=== PATIENT | female | born 1995 | race Caucasian/White ===

== ENCOUNTER 2016-09-23 20:12 | Emergency (ER) | payer OTHER ==
[~2016-09-23] VITALS: Ht 160 cm; Wt 57.2 kg
[2016-09-23 20:31] VITALS: TEMP 36.7; Ht 160 cm; Wt 57.2 kg
--- NOTE | 2016-09-23 21:14 | EMERGENCY ROOM VISIT NOTE ---
History Report prepared by Scribe: Eleanor Luu Under the Supervision of: Dr. Daniel De La Torre D.O. First contact with patient: 20:54 Chief Complaint: HIP PAIN Stated Complaint: R HIP FRACTURE History of Present Illness The patient is a 21 year old female who presents to the Emergency Room with complaints of worsening right hip pain for the past several weeks. She reports she has been training for a half marathon and has been running more than usual for her training. She initially started experiencing right leg pain, which then traveled into her hip. She rates her discomfort as a 6/10. Walking and activity worsens her pain. The patient initially saw [facility] and produced a normal X-Ray. She was then referred to Dr. Barnett at [facility]. She reports she was seen here earlier today and had an MRI, ordered by Dr. Barnett at [facility]. The MRI showed a right radial neck fracture, and the patient states Dr. Barnett referred her to the ED for further evaluation. The patient denies any recent falls or trauma and states she was told her fracture was most likely from overuse. She denies any other complaints at today's visit. Source of History: patient Onset: past several weeks TAKE AWAY MAN Position: other (right hip) Symptom Intensity: 6/10 Timing: worsening Modifying Factors (Worsening): movement, other (walking) Review of Systems See HPI for pertinent positives & negatives. A total of 10 systems reviewed and were otherwise negative. Family History Cancer Social History Smoking Status: Never Smoker Alcohol Use: occasionally Drug Use: none Marital Status: in relationship Housing Status: lives with significant other Occupation Status: [employer] student Allergies Coded Allergies: No Known Allergies (Unverified , 09/23/16) Physical Exam Vital Signs Date Time Temp Pulse Resp B/P Pulse Ox O2 Delivery O2 Flow Rate FiO2 09/23/16 20:31 36.7 85 16 140/93 98 Room Air Physical Exam CONSTITUTIONAL/VITAL SIGNS: Reviewed / noted above. GENERAL: Non-toxic in appearance. INTEGUMENTARY: Warm, dry, and [place]. HEAD: Normocephalic. EYES: without scleral icterus or trauma. ENT/OROPHARYNX: clear and moist. LYMPHADENOPATHY/NECK: Is supple without lymphadenopathy or meningismus. RESPIRATORY: Lungs clear and equal. CARDIOVASCULAR: Regular rate and rhythm. GI/ABDOMEN: Soft and nontender. No organomegaly or pulsatile mass. No rebound or guarding. Normal bowel sounds. EXTREMITIES: Warm and well perfused. BACK: No CVA tenderness. NEUROLOGICAL: Intact without focal deficits. PSYCHIATRIC: normal affect. MUSCULOSKELETAL: Normally developed with good muscle tone. Medical Decision & Procedures ED Course 2053: Previous medical records were reviewed. The patient was evaluated in room A2. A complete history and physical examination was performed. 2103: I discussed the patients case with Josias Najera and [facility]. He recommends the patient be placed on crutches and have outpatient follow up. 2114: I reevaluated the patient. She is feeling well. I discussed her discharge instructions and she verbalized complete understanding and agreement. Medical Decision Differential includes fracture, contusion, musculoskeletal pain. This is a 21-year-old female who presents to the ED with an outpatient MRI showing a nondisplaced/non-distracted fracture with some bone marrow edema in the right femoral neck. She states that she has recently been training to run for a marathon but was unable to continue with this several weeks ago when she developed a pain in her right hip. She was seen by [employer] orthopedic sports medicine. She had an outpatient MRI today that showed this fracture. I spoke with Dr. Burgos, on-call orthopedics, who recommended the patient be only touch weightbearing on crutches and follow-up with orthopedics outpatient. She was referred to [employer] [facility] since she is seeing them for sports medicine. Consults Time Called: 2099 Consulting Physician: Vlad [facility] Returned Call: 2103 I discussed the patients case with Josias Najera and [facility]. He recommends the patient be placed on crutches and have outpatient follow up. Impression Primary Impression: Stress fracture of femoral neck Scribe Attestation The scribe's documentation has been prepared under my direction and personally reviewed by me in its entirety. I confirm that the note above accurately reflects all work, treatment, procedures, and medical decision making performed by me. Departure Information Dispostion Home / Self-Care Referrals No Doctor, Assigned (PCP) Dillan Gifford M.D. Patient Instructions Fx Stress, My [facility] Additional Instructions Use crutches. Non-weight bearing to right leg. Follow-up with Dr. Gifford for further evaluation. Call tomorrow for an appointment for follow-up.
[2016-09-23 21:31] VITALS: BP 133/84; PULSE 79; O2SAT 98
[2016-09-23] MEDS ORDERED: BCPILLS PO (21:32)
[2016-09-23] MEDS ORDERED: NAPR-1168 PO (21:33)
== END 2016-09-23 21:33 | disposition home or self-care (01) ==
LOC: C.EDB 20:14 → C.EDA 21:33
DX: M84.359A Stress fracture, hip, unspecified, initial encounter for fracture (principal); Z80.9 Family history of malignant neoplasm, unspecified

== ENCOUNTER → 2016-09-23 | Outpatient (CLI) | payer OTHER ==
[~2016-09-23] MED LIST: BCPILLS PO; NAPR-1168 PO
--- NOTE | 2016-09-23 20:00 | DIAGNOSTIC IMAGING REPORT ---
MRI OF THE RIGHT HIP WITHOUT IV CONTRAST CLINICAL HISTORY: Overuse injury. COMPARISON STUDY: No priors. TECHNIQUE: MRI of the right hip is performed utilizing various T1 and T2-weighted sequences in the axial and coronal planes. IV contrast was not administered for this examination. FINDINGS: There is a nondistracted fracture through base of the right femoral neck with significant surrounding marrow edema. No additional acute fracture is seen. The left hip and the visualized bony pelvis appear intact. There is no joint effusion. There is no evidence of greater trochanteric or iliopsoas bursitis. The musculature of the hips and pelvis is normal in bulk and signal intensity. The origin of the hamstrings tendons appear preserved. The pelvic viscera is normal as imaged. Trace free fluid is identified in the cul-de-sac and likely within physiologic limits. There is no pelvic sidewall or inguinal lymphadenopathy. IMPRESSION: There is a nondistracted fracture through the base of the right femoral neck with significant associated marrow edema. Findings were discussed with the patient at the time of interpretation, with obstruction to return to the emergency department for further assessment and treatment. Electronically signed by: Artemio Springer M.D. 09/23/2016 7:57 PM Dictated Date/Time: 09/23/2016 7:34 PM
== END | disposition home or self-care (01) ==
LOC: C.MRI 17:50
PROVIDERS: ATTEND Family Medicine Sports Medicine
DX: M25.551 Pain in right hip (principal); S72.044A Nondisplaced fracture of base of neck of right femur, initial encounter for closed fracture; X58.XXXA Exposure to other specified factors, initial encounter

== ENCOUNTER → 2016-09-30 | Day surgery (SDC) | payer OTHER ==
[2016-09-27 12:44] VITALS: Ht 160 cm; Wt 54.5 kg
[~2016-09-30] VITALS: Ht 160 cm; Wt 54.5 kg
[~2016-09-30] MED LIST changes: +ATROPINE SULFATE 0.1 MG/ML 5ML SYR IV PRN; +BUPIVACAINE 0.5 % 5 MG/1 ML MPF 30ML VIAL ONE; +CEFAZOLIN 1000MG/55 ML D5W IV SCH; +DEXAMETHASONE SOD INJ 4 MG/ML VIAL ONE; +EpHEDrine SULFATE 50MG/5ML SYR ONE; +EpHEDrine SULFATE INJ 50 MG/ML AMP IV PRN; +FENTANYL CITRATE INJ 50 MCG/1 ML 2 ML VIAL ONE; +LACTATED RINGER'S 1000ML 1,000 ML IV SCH; +LIDOCAINE HCL 2% 2 ML VIAL (20MG/ML) ONE; +LIDOCAINE/EPINEPHRINE 1% INJ 50 ML VIAL ONE; +MIDAZOLAM HCL 1 MG/ML 2ML VIAL ONE; +MoRPHine SULFATE 2 MG/ML CARP IV PRN; +MoRPHine SULFATE 4 MG/ML 1 ML CARP\\VIAL IV PRN; +NALOXONE HCL 0.4 MG/1 ML VIAL/CARP IV PRN; -NAPR-1168 PO; +ONDANSETRON INJ 2 MG/ML 2 ML VIAL IV PRN; +ONDANSETRON INJ 2 MG/ML 2 ML VIAL ONE; +PROMETHAZINE HCL INJ 12.5 MG in SODIUM CHLORIDE 0.9% 50ML 50 ML IV PRN; +PROPOFOL IV EMULSION 10 MG/ML 20 ML VIAL IV ONE
--- NOTE | 2016-09-30 08:46 | History & Physical Bridge - SC ---
H&P Re-Evaluation Bridge Note: I have examined the patient, reviewed the History & Physical and in the interval since the performance of the History & Physical I have noted the following changes of clinical significance: No changes noted
--- NOTE | 2016-09-30 11:32 | Discharge Instructions-SurgCtr ---
Discharge Instructions Date of Service September 30, 2016. Visit Reason for Visit: Right Hip Stress Fracture Discharge Discharge Diagnosis / Problem: Status post Closed Right hip In Situ Pinning Discharge Goals Goal(s): Decrease discomfort, Improve function, Increase independence Activity Recommendations Activity Limitations: per Instructions/Follow-up section May Resume Sexual Activity: when tolerated Shower/Bathe: may shower/bathe in 3 days Driving or Machine Use: Not while on Narcotics Weightbearing Status: Right toe touch Anesthesia . Post Anesthesia Instructions: If you have had General Anesthesia or IV Sedation: * Do not drive today. * Resume driving when surgeon permits. * Do not make important decisions or sign legal documents today. * Call surgeon for: 1. Temperature elevations greater than 101 degrees F. 2. Uncontrollable pain. 3. Excessive bleeding. 4. Persistent nausea and vomiting. 5. Medication intolerance (nausea, vomiting or rash). * For nausea and vomiting use only clear liquids such as: tea, soda, bouillon until nausea subsides, then gradually increase diet as tolerated. * If you have any concerns or questions, call your surgeon's office. If physician is unavailable and it is an emergency, call 911 or go to the nearest emergency room. . Instructions / Follow-Up Instructions / Follow-Up Follow up With Dr. Darnell next week. PT in 2-3 days. Diet Recommendations Home Diet: resume previous diet Procedures Procedures Performed: Right Hip Closed Reduction In situ Pinning Pending Studies Studies pending at discharge: no School Instructions Return To School: time frame (1-5 days) Medical Emergencies . Who to Call and When: Medical Emergencies: If at any time you feel your situation is an emergency, please call 911 immediately. . Non-Emergent Contact Non-Emergency issues call your: Surgeon Call Non-Emergent contact if: temperature is above 101.5, your pain is not controlled, wound has increased drainage, wound has increased redness . . "Provider Documentation" section prepared by Dakota Darnell. .
--- NOTE | 2016-09-30 11:33 | [facility] Post Operative Brief Note ---
Immediate Operative Summary Operative Date September 30, 2016. Pre-Operative Diagnosis Right Hip Stress Fracture Post-Operative Diagnosis same Procedure(s) Performed Right Hip Closed Reduction In situ Pinning Surgeon Dr. Tyler Darnell Hand Spring Repairer Surgeon(s) Dr. Tad Dorsey, Alex Vega PA-C Estimated Blood Loss 12 ML Findings As above Fluids (cc crystalloids) 1000 Specimens none Drains n/a Anesthesia LMA Complication(s) None Disposition Recovery Room / PACU (Stable)
--- NOTE | 2016-09-30 11:36 | [facility] Operative Report ---
Operative Report Operative Date September 30, 2016. Pre-Operative Diagnosis Right Hip Stress Fracture Post-Operative Diagnosis same Procedure(s) Performed Right Hip Closed Reduction In situ Pinning Surgeon Dr. Tyler Darnell Sales Team Manager Surgeon(s) Dr. Tad Dorsey, Alex Vega PA-C Estimated Blood Loss 12 ML Findings Stress Fracture Right hip. Fluids (cc crystalloids) 1000 Specimens none Drains n/a Anesthesia LMA Complication(s) None Disposition Recovery Room / PACU (Stable) Implants 1) 7.3 mm Short Partial Threaded Cannulated screw 80 mm (Synthes). 2) 5.5 mm Short Threaded Cannulated screws 75 mm x 2 ([employer]). Indications The patient is a 21 year old female who sustained a right femoral neck stress fracture from a running. The patients treatment options of conservative versus surgical intervention were discussed. I recommended surgery, to stabilize the fracture and prevent displacement and the potential for further complications to the femoral head. The patient understands the risks of surgery , which include but are not limited to: bleeding, infection, re-operation, damage to nerves and arteries, continued pain, failure of the hardware, mal- union, non-union, and DVT. The patient understands all of these instructions and explanations, all of their questions have been satisfactorily addressed. The patient has elected to proceed with surgery and the informed consent was signed. Description of Procedure The patient was taken to the Operating Room and placed in the supine position on the fracture table after anesthesia was administered. A multidisciplinary time-out was performed identifying my initials on the right lower limb as the correct and operative limb. Prior to the incision being made, 1 gram of intravenous Ancef was given. Fluoroscopy was brought in to ensure adequate x- rays images could be obtained. The right lower extremity was prepped in the standard fashion. The trochanter and the planned incision were marked. The incisions were injected with a 50:50 mixture of 1% Lidocaine plain and 0.5% Bupivacaine with epinephrine for a total of 10cc. fluoroscopy was brought in to assess the starting point for the placement of the cannulated screws. The planned incision was then carried down through the Tensor Fascia Sindy to expose the lateral starting position, proximal to the lesser trochanter. A starting guide wire, for a 7.3 mm cannulated screw, was placed toward the inferior aspect of the femoral neck, centrally in the AP and lateral projection, for the lower portion of the inverted triangle configuration. Then using dual aiming guide, the 2 superior guidewires for the, 5.5 mm cannulated screws, were placed one anteriorly and a second posteriorly. After obtaining good position of all the guidewires, the outer cortex was drilled with the appropriate cannulated drill. The 7.3 mm screw was placed first followed by the anterior and then posterior 5.5 mm cannulated screws. Final AP and lateral x-rays were obtained showing good alignment of the screws. The wounds were copiously irrigated. The Vastus Lateralis and the Tensor Fascia Sindy was closed with 0 Vicryl. The subcutaneous tissue was closed with 3-0 Vicryl. The skin was closed with 4-0 Monocryl and Dermabond. Once the Dermabond had dried, the incisions were covered with Xeroform, 4x4s, ABD, and Tegaderm. She had excellent range of motion of her hip and knee. The patient was transfer to her hospital bed and taken to the PACU in stable condition. The sponge and needle counts were correct. Post-op Instructions: The patient will be TTWB. She will utilize pain medicine as needed. She will start physical therapy in 2-3 days. She will utilize anti-inflammatories for DVT prophylaxis over the next 3 weeks. I attest to the content of the Intraoperative Record and any orders documented therein. Any exceptions are noted below.
--- NOTE | 2016-09-30 11:58 | [facility] Operative Report ---
Operative Report Operative Date September 30, 2016. Pre-Operative Diagnosis Right Hip Stress Fracture Post-Operative Diagnosis same Procedure(s) Performed Right Hip In situ Pinning Surgeon Dr. Tyler Darnell Researcher Surgeon(s) Dr. Tad Dorsey, Alex Vega PA-C Estimated Blood Loss 12 ML Findings SAME Fluids (cc crystalloids) 1000 Specimens none Drains None Anesthesia general Complication(s) None Implants see Dr. Darnell's note Indications continued right hip pain with activity, imaging obtained, surgery recommended, consents signed. Description of Procedure taken to the OR, prepped and draped, I was present the entire case, please see Dr. Darnell's op note for further detail. I attest to the content of the Intraoperative Record and any orders documented therein. Any exceptions are noted below.
[2016-09-30] MEDS: HYDROmorphone INJ 1 MG/ML SYR IV PRN ×4 (12:15→12:32)
--- NOTE | 2016-09-30 12:45 | Anesthesia Progress Nt - [facility] ---
Anesthesia Post Op Note Date & Time September 30, 2016 at 12:45 Vital Signs Pain Intensity: 4 Vital Signs Past 12 Hours Date Time Temp Pulse Resp B/P Pulse Ox O2 Delivery O2 Flow Rate FiO2 09/30/16 12:31 68 14 97 09/30/16 12:31 36.4 71 14 09/30/16 12:30 132/79 09/30/16 12:26 78 14 98 09/30/16 12:26 77 14 09/30/16 12:25 Room Air 09/30/16 11:49 36.2 86 20 126/87 99 Diffusion Mask 5 09/30/16 07:41 36.7 68 16 107/74 96 Room Air Notes Mental Status: alert / awake / arousable, participated in evaluation Pt Amnestic to Procedure: Yes Nausea / Vomiting: adequately controlled Pain: adequately controlled Airway Patency, RR, SpO2: stable & adequate BP & HR: stable & adequate Hydration State: stable & adequate Anesthetic Complications: no major complications apparent Pt doing very well.
[2016-09-30 12:46] VITALS: TEMP 36.6
[2016-09-30] MEDS: OXYCODONE/ACETAMINOPHEN 5-325 TAB PO PRN ×2 (12:55→13:39)
[2016-09-30 13:34] VITALS: BP 125/79; PULSE 56; O2SAT 100
== END | disposition home or self-care (01) ==
LOC: X.SURG 07:23
PROVIDERS: ATTEND Orthopaedic Surgery Sports Medicine
DX: M84.359A Stress fracture, hip, unspecified, initial encounter for fracture (principal)

== ENCOUNTER → 2016-12-06 | Outpatient (CLI) | payer OTHER ==
[~2016-12-06] MED LIST changes: -ATROPINE SULFATE 0.1 MG/ML 5ML SYR IV PRN; -BUPIVACAINE 0.5 % 5 MG/1 ML MPF 30ML VIAL ONE; -CEFAZOLIN 1000MG/55 ML D5W IV SCH; -DEXAMETHASONE SOD INJ 4 MG/ML VIAL ONE; -EpHEDrine SULFATE 50MG/5ML SYR ONE; -EpHEDrine SULFATE INJ 50 MG/ML AMP IV PRN; -FENTANYL CITRATE INJ 50 MCG/1 ML 2 ML VIAL ONE; -LACTATED RINGER'S 1000ML 1,000 ML IV SCH; -LIDOCAINE HCL 2% 2 ML VIAL (20MG/ML) ONE; -LIDOCAINE/EPINEPHRINE 1% INJ 50 ML VIAL ONE; -MIDAZOLAM HCL 1 MG/ML 2ML VIAL ONE; -MoRPHine SULFATE 2 MG/ML CARP IV PRN; -MoRPHine SULFATE 4 MG/ML 1 ML CARP\\VIAL IV PRN; -NALOXONE HCL 0.4 MG/1 ML VIAL/CARP IV PRN; -ONDANSETRON INJ 2 MG/ML 2 ML VIAL IV PRN; -ONDANSETRON INJ 2 MG/ML 2 ML VIAL ONE; -PROMETHAZINE HCL INJ 12.5 MG in SODIUM CHLORIDE 0.9% 50ML 50 ML IV PRN; -PROPOFOL IV EMULSION 10 MG/ML 20 ML VIAL IV ONE
== END | disposition home or self-care (01) ==
LOC: C.RDSM 08:07
PROVIDERS: ATTEND Orthopaedic Surgery Sports Medicine
DX: Z09 Encounter for follow-up examination after completed treatment for conditions other than malignant neoplasm (principal)